=== PATIENT | female | born 1970 | race Caucasian/White ===

== ENCOUNTER 2022-01-02 08:35 | Observation (INO) ==
[2022-01-02] MEDS ORDERED: Famotidine 20 MG/2 ML VIAL IVP ONE (08:51)
[2022-01-02] MEDS ORDERED: Celecoxib 200 MG CAPSULE PO ONE (08:52)
[2022-01-02] MEDS ORDERED: Acetaminophen IV 1,000 MG/100 ML BAG IVPB ONE (08:52)
[2022-01-02] MEDS ORDERED: CeFAZolin Syr 2,000MG/20 ML 2,000 MG/20 ML SYRINGE IVPB ONE (09:30)
[2022-01-02] MEDS ORDERED: *HR* Succinylcholine 200 MG/10 ML VIAL IVP ONE (09:32)
[2022-01-02] MEDS ORDERED: Lidocaine HCL 4 ML Topical Solution (Laryng-O-Jet Kit Sterile Pak) TP ONE (09:32)
[2022-01-02] MEDS ORDERED: Lidocaine -MPF 2% 2 ML VIAL ONE (09:32)
[2022-01-02] MEDS ORDERED: *HR* Rocuronium Bromide 50 MG/5 ML VIAL ONE (09:32)
[2022-01-02] MEDS ORDERED: Ondansetron 4 MG/2 ML VIAL ONE (09:32)
[2022-01-02] MEDS ORDERED: *HR* FentaNYL (PF) 100 MCG/2 ML VIAL ONE (09:33)
[2022-01-02] MEDS ORDERED: *HR* Propofol 200 MG/20 ML VIAL IVP ONE (09:33)
[2022-01-02] MEDS ORDERED: *HR* Midazolam HCl 2 MG/2 ML VIAL ONE (09:33)
[2022-01-02] MEDS: Ringers Solution, Lactated 1,000 ML IVC SCH (09:36)
[2022-01-02] MEDS ORDERED: Sugammadex Sodium 200 MG/2 ML VIAL IV ONE (11:40)
[2022-01-02] MEDS: *HR* OxyCODONE/APAP 10/325 TABLET PO PRN (13:59)
[2022-01-02] MEDS ORDERED: Vancomycin 1,250 MG/262.5 ML IV.SOLN IVPB ONE (15:00)
[2022-01-02 15:42] LABS: Basophils # 0.1 K/mcL (0.0-0.2); Eosinophils % 0.4 %; Hematocrit 37.2 % (35.3-44.9); Hemoglobin 12.3 g/dL (11.5-15.4); Immature Granulocytes % 2.2 % (0-4); Lymphocytes # 0.6 K/mcL (0.6-4.6); Lymphocytes % 12.1 %; Mean Corpuscular HGB Conc 33.1 g/dL (31.6-35.5); Mean Corpuscular Hemoglobin 29.1 pg (28.0-33.3); Mean Corpuscular Volume 87.9 fL (83.0-100.0); Mean Platelet Volume 9.4 fL (9.4-12.4); Monocytes # 0.1 K/mcL (0.0-1.3); Monocytes % 1.4 %; Neutrophils # 4.2 K/mcL (1.6-8.9); Platelet Count 287 K/mcL (140-400); Red Blood Count 4.23 M/mcL (3.82-4.97); Segmented Neutrophils % 82.9 %
[2022-01-02 15:43] LABS: BUN/Creatinine Ratio 12 (6-26); Blood Urea Nitrogen 12 mg/dL (6-20); C-Reactive Protein < 5 mg/L (Less than 10); Calcium 8.3 mg/dL (8.6-10.3); Carbon Dioxide 22 mEq/L (23-29); Chloride 106 mEq/L (98-107); Glucose 102 mg/dL (70-105); Osmolality,Calculated 282 (280-300); Potassium 4.2 mEq/L (3.5-5.1); Sodium 136 mEq/L (136-145); eGFR For African Americans > 60 (> 60); eGFR For Non-African Americans 59 (> 60)
[2022-01-02] MEDS ORDERED: Naloxone 0.4 MG/ML INJ IVP PRN (15:53)
[2022-01-02] MEDS ORDERED: Melatonin 3 MG TABLET PO PRN (15:53)
[2022-01-02] MEDS ORDERED: Ondansetron ODT 4 MG TAB.RAPDIS SL PRN (15:53)
[2022-01-02] MEDS: *HR* OxyCODONE/APAP 5/325 TABLET PO PRN (18:55)
[2022-01-03 03:59] LABS: Basophils % 0.3 %; Immature Granulocytes % 1.1 % (0-4); Lymphocytes # 0.9 K/mcL (0.6-4.6); Mean Corpuscular HGB Conc 33.3 g/dL (31.6-35.5); Mean Corpuscular Hemoglobin 29.4 pg (28.0-33.3); Mean Corpuscular Volume 88.2 fL (83.0-100.0); Mean Platelet Volume 9.5 fL (9.4-12.4); Monocytes # 0.4 K/mcL (0.0-1.3); Monocytes % 5.7 %; Neutrophils # 5.2 K/mcL (1.6-8.9); Platelet Count 291 K/mcL (140-400); Red Blood Count 4.08 M/mcL (3.82-4.97); Red Cell Distribution Width 12.8 % (11.5-14.5); Segmented Neutrophils % 78.9 %; White Blood Count 6.5 K/mcL (4.3-11.1)
[2022-01-03 04:20] LABS: BUN/Creatinine Ratio 17 (6-26); Blood Urea Nitrogen 13 mg/dL (6-20); Calcium 8.1 mg/dL (8.6-10.3); Carbon Dioxide 21 mEq/L (23-29); Chloride 105 mEq/L (98-107); Glucose 99 mg/dL (70-105); Osmolality,Calculated 278 (280-300); Potassium 4.3 mEq/L (3.5-5.1); Sodium 134 mEq/L (136-145); eGFR For African Americans > 60 (> 60); eGFR For Non-African Americans > 60 (> 60)
[2022-01-03] MEDS: *HR* OxyCODONE/APAP 5/325 TABLET PO PRN (11:09)
[2022-01-03] MEDS: *HR* OxyCODONE/APAP 10/325 TABLET PO PRN ×2 (12:31→21:30)
[2022-01-03] MEDS: Ringers Solution, Lactated 1,000 ML IVC SCH (17:42)
[2022-01-04] MEDS: *HR* OxyCODONE/APAP 10/325 TABLET PO PRN ×2 (06:36→11:32)
[2022-01-04] MEDS ORDERED: Vancomycin 1,250 MG/262.5 ML IV.SOLN IVPB SCH (07:00)
[2022-01-04 07:04] VITALS: PULSE 73
[2022-01-04 10:45] VITALS: BP 121/83; TEMP 98.6; O2SAT 97
== END 2022-01-04 14:30 | disposition home or self-care (01) ==
LOC: SDCAOSI 08:35 → 4WAOSI 08:35
PROVIDERS: ADMIT Family Medicine; ATTEND Orthopaedic Surgery

== ENCOUNTER 2022-05-02 09:52 | Observation (INO) ==
[2022-05-02] MEDS: Ringers Solution, Lactated 1,000 ML IVC SCH (10:30)
[2022-05-02] MEDS ORDERED: *HR* Midazolam HCl 2 MG/2 ML VIAL ONE (10:31)
[2022-05-02] MEDS ORDERED: *HR* FentaNYL (PF) 100 MCG/2 ML VIAL ONE (10:31)
[2022-05-02] MEDS ORDERED: *HR* Propofol 200 MG/20 ML VIAL IVP ONE (10:31)
[2022-05-02] MEDS ORDERED: Lidocaine -MPF 2% 5 ML VIAL ONE (10:32)
[2022-05-02] MEDS ORDERED: Lidocaine HCL 4 ML Topical Solution (Laryng-O-Jet Kit Sterile Pak) TP ONE (10:32)
[2022-05-02] MEDS ORDERED: *HR* Succinylcholine 200 MG/10 ML VIAL IVP ONE (10:32)
[2022-05-02] MEDS ORDERED: Ondansetron 4 MG/2 ML VIAL ONE ×2 (10:32→12:54)
[2022-05-02] MEDS ORDERED: *HR* HYDROmorphone PF 0.5 MG/0.5 ML SYRINGE IVP PRN (10:41)
[2022-05-02] MEDS ORDERED: *HR* OxyCODONE Immed Rel 5 MG TABLET PO PRN (10:41)
[2022-05-02] MEDS ORDERED: *HR* FentaNYL (PF) 100 MCG/2 ML VIAL IVP PRN (10:41)
[2022-05-02] MEDS ORDERED: Acetaminophen IV 1,000 MG/100 ML BAG IVPB ONE (10:41)
[2022-05-02] MEDS ORDERED: Ondansetron 4 MG/2 ML VIAL IVP PRN (10:41)
[2022-05-02] MEDS ORDERED: Scopolamine Patch 1.5 MG PATCH.TD72 TD ONE (10:41)
[2022-05-02] MEDS ORDERED: Famotidine 20 MG/2 ML VIAL IVP ONE (10:41)
[2022-05-02] MEDS ORDERED: Naloxone 0.4 MG/ML INJ IVP PRN (14:00)
[2022-05-02] MEDS ORDERED: Melatonin 3 MG TABLET PO PRN (14:00)
[2022-05-02] MEDS ORDERED: cefTRIAXone 2,000 MG in 0.9 % Sodium Chloride Mini Bag 100 ML IVPB SCH (15:00)
[2022-05-02 16:13] LABS: BUN/Creatinine Ratio 8 (6-26); Blood Urea Nitrogen 8 mg/dL (6-20)
[2022-05-02] MEDS: Piperacillin/Tazobactam 3.375 GM in 0.9 % Sodium Chloride Mini Bag 100 ML IVPB SCH ×2 (17:22→23:36)
[2022-05-02] MEDS: *HR* HYDROcodone/Acet 5/325 mg TABLET PO PRN ×2 (17:36→23:36)
[2022-05-03 04:43] LABS: Basophils % 0.1 %; Hematocrit 35.9 % (35.3-44.9); Hemoglobin 11.6 g/dL (11.5-15.4); Immature Granulocytes % 0.4 % (0-4); Lymphocytes # 0.8 K/mcL (0.6-4.6); Lymphocytes % 11.6 %; Mean Corpuscular HGB Conc 32.3 g/dL (31.6-35.5); Mean Corpuscular Volume 86.7 fL (83.0-100.0); Mean Platelet Volume 10.2 fL (9.4-12.4); Monocytes # 0.5 K/mcL (0.0-1.3); Monocytes % 7.3 %; Neutrophils # 5.6 K/mcL (1.6-8.9); Platelet Count 266 K/mcL (140-400); Red Blood Count 4.14 M/mcL (3.82-4.97); Red Cell Distribution Width 12.7 % (11.5-14.5); Segmented Neutrophils % 80.6 %
[2022-05-03 05:02] LABS: Calcium 8.3 mg/dL (8.6-10.3)
[2022-05-03] MEDS: *HR* HYDROcodone/Acet 5/325 mg TABLET PO PRN ×3 (09:20→21:42)
[2022-05-03] MEDS: Piperacillin/Tazobactam 3.375 GM in 0.9 % Sodium Chloride Mini Bag 100 ML IVPB SCH ×2 (09:23→15:24)
[2022-05-03] MEDS ORDERED: SUMAtriptan succinate 50 MG TABLET PO PRN (11:03)
[2022-05-03] MEDS: Ringers Solution, Lactated 1,000 ML IVC SCH (16:46)
[2022-05-03] MEDS: *HR* Heparin 5,000 UNIT/ML VIAL SQ SCH (18:25)
[2022-05-04] MEDS: Piperacillin/Tazobactam 3.375 GM in 0.9 % Sodium Chloride Mini Bag 100 ML IVPB SCH ×2 (00:22→07:39)
[2022-05-04] MEDS: *HR* Heparin 5,000 UNIT/ML VIAL SQ SCH ×2 (05:21→17:17)
[2022-05-04] MEDS: BuPROPion XL (24 HR) 150 MG TABLET PO SCH (07:39)
[2022-05-04] MEDS: FLUoxetine 20 MG CAPSULE PO SCH (07:39)
[2022-05-04] MEDS: *HR* HYDROcodone/Acet 5/325 mg TABLET PO PRN ×2 (13:01→21:25)
[2022-05-04] MEDS: Ringers Solution, Lactated 1,000 ML IVC SCH (13:50)
[2022-05-05] MEDS: *HR* Heparin 5,000 UNIT/ML VIAL SQ SCH (06:02)
[2022-05-05] MEDS: BuPROPion XL (24 HR) 150 MG TABLET PO SCH (07:31)
[2022-05-05] MEDS: FLUoxetine 20 MG CAPSULE PO SCH (07:31)
[2022-05-05 07:49] VITALS: BP 137/92; PULSE 78; TEMP 97.9; O2SAT 97
[2022-05-05] MEDS: Ringers Solution, Lactated 1,000 ML IVC SCH (11:25)
[2022-05-05] MEDS: *HR* HYDROcodone/Acet 5/325 mg TABLET PO PRN (11:40)
[2022-05-05 15:00] LABS: Calcium 8.9 mg/dL (8.6-10.3); Magnesium 2.1 mg/dL (1.6-2.6); Potassium 3.7 mEq/L (3.5-5.1)
== END 2022-05-05 16:18 | disposition home health service (06) ==
LOC: SUATTDRO → SDCAOSI 09:52 → 4WAOSI 09:52
PROVIDERS: ADMIT Internal Medicine; ATTEND Internal Medicine